=== PATIENT | male | born 1980 | race Caucasian/White ===

== ENCOUNTER 2016-11-01 07:56 | Emergency (ER) | payer OTHER ==
[2016-11-01 08:10] VITALS: TEMP 98; O2SAT 97
--- NOTE | 2016-11-01 08:19 | EDPHY ---
H & P Time Seen by Provider: 11/01/16 08:02 HPI/ROS: CHIEF COMPLAINT: cough HISTORY OF PRESENT ILLNESS: 36-year-old male with a history of bipolar disorder presents with a three-week history of cough. Onset of a productive cough, runny nose and sore throat 3 weeks ago. He was better for few days, but then worsened over the past 3-4 days. The cough is associated with subjective fever and shortness of breath. He also has ongoing anxiety and saw his primary care physician 3 weeks ago for anxiety. He is taking BuSpar and Xanax for anxiety. He was also given a prescription for Lexapro, but because of concerns for possible serotonin syndrome, he decided not to take this medication. REVIEW OF SYSTEMS: Constitutional: no chills Eyes: No visual changes Cardiac: No chest pain Gastrointestinal: No nausea, no vomiting, no abdominal pain Genitourinary: no dysuria Musculoskeletal: No leg pain or swelling Skin: No rash Neurological: No headache, no weakness Psychiatric: Anxiety Past Medical/Surgical History: Bipolar disorder Back pain Social History: No recent alcohol Smoking Status: Never smoked Physical Exam: General Appearance: Alert, anxious Eyes: Pupils equal and round, no conjunctival injection ENT, Mouth: Mucous membranes moist Neck: Normal inspection Respiratory: Lungs are clear to auscultation Cardiovascular: Regular tachycardia Gastrointestinal: Abdomen is soft and nontender Neurological: A&O, nonfocal, normal gait Skin: Warm and dry, no rash Extremities: Nontender, no pedal edema Psychiatric: anxious, denies SI/HI Constitutional: Initial Vital Signs Temperature (C) 36.6 C 11/01/16 08:08 Heart Rate 121 H 11/01/16 08:08 Respiratory Rate 18 11/01/16 08:08 Blood Pressure 150/87 H 11/01/16 08:08 O2 Sat (%) 97 11/01/16 08:08 O2 Delivery Mode Room Air Allergies/Adverse Reactions: acetaminophen [From Tylenol] Allergy (Verified 11/01/16 08:05) Home Medications: Medication Instructions Recorded Azithromycin [Zithromax] 250 mg PO DAILY #6 tab 11/01/16 Buspar (*) 11/01/16 Flexeril 11/01/16 Xanax 11/01/16 Medical Decision Making - Diagnostics Imaging Results: Imaging Impressions Chest X-Ray 11/01/16 08:16 Impression: No acute pulmonary disease. Chest x-ray independently reviewed by me reveals no acute disease. ED Course/Re-evaluation: This pt presents with ongoing cough and intermittent fever for 3 weeks. CXR negative. Given prolong sx, will place pt on Zpak. Anxiety subsided during his ED stay. O2 sat 97% RA. d/w pt at length about anxiety sx. Starting new job today, has appt with Dr. Angeles (his psychiatrist) on 11/14. Will f/u with Dr. Covington about increasing Buspar vs other anxiolytic medications. No SI/HI or need for mental health evaluation today. Departure - Departure Disposition: Home, Routine, Self-Care Clinical Impression: Acute bronchitis Qualifiers: Bronchitis organism: unspecified organism Qualified Code(s): J20.9 - Acute bronchitis, unspecified Condition: Good Instructions: Acute Bronchitis (ED) Referrals: Luana Covington DO [Doctor of Osteopathy] - 2-3 days, call for appt. Prescriptions: Azithromycin [Zithromax] 250 mg PO DAILY #6 tab
[2016-11-01 08:30] VITALS: PULSE 118; RESP 20
[2016-11-01 09:04] VITALS: BP 147/85
== END 2016-11-01 08:55 | disposition home or self-care (01) ==
LOC: CED 07:56
DX: J20.9 Acute bronchitis, unspecified (principal)
CPT/HCPCS: 71020-PO

== ENCOUNTER → 2017-10-17 | Outpatient (CLI) | payer OTHER | LOC: CIMAGING 10:47 | PROVIDERS: ATTEND Family Medicine | DX: M79.672 Pain in left foot (principal) ==